=== PATIENT | female | born 1950 | race Caucasian/White ===

== ENCOUNTER 2017-09-30 12:35 | Emergency (ER) | payer MEDICARE ==
[~2017-09-30] VITALS: Ht 170.2 cm; Wt 114.0 kg
[~2017-09-30 12:35] MED LIST: loratadine 10mg tablet PO ONE
[2017-09-30 13:04] LABS: BASOPHILS % (AUTO) 0.4 % (0-1); EOSINOPHILS % (AUTO) 0.3 % (0-6); HEMATOCRIT 45.7 % (35.0-45.0); HEMOGLOBIN 15.4 g/dl (12.0-16.0); LYMPHOCYTES # (AUTO) 1.7 X10'3 (1.1-4.8); LYMPHOCYTES % (AUTO) 14.9 % (21-51); MEAN CORPUSCULAR HEMOGLOBIN 30.7 PG (27.0-31.0); MEAN CORPUSCULAR HGB CONC 33.8 % (33.0-36.5); MEAN CORPUSCULAR VOLUME 91.1 FL (78-98); MEAN PLATELET VOLUME 8.6 FL (7.4-10.4); MONOCYTES # (AUTO) 0.7 X10'3 (0-0.9); MONOCYTES % (AUTO) 5.6 % (2-12); NEUTROPHILS # (AUTO) 9.3 X10'3 (1.8-7.7); NEUTROPHILS % (AUTO) 78.8 % (42-75); PLATELET COUNT 277 X10'3 (140-440); RED BLOOD COUNT 5.02 X10'6 (4.20-5.60); RED CELL DISTRIBUTION WIDTH 14.7 % (11.5-14.5); WHITE BLOOD COUNT 11.7 X10'3 (4.5-11.0)
[2017-09-30] MEDS ORDERED: MULT1TAB74 PO (13:07)
[2017-09-30] MEDS ORDERED: APIX5TAB3 PO (13:07)
[2017-09-30] MEDS ORDERED: FLEC100T2 PO (13:07)
[2017-09-30] MEDS ORDERED: DILT240C96 PO (13:07)
[2017-09-30] MEDS ORDERED: LEVO75TA PO (13:07)
[2017-09-30] MEDS ORDERED: normal saline 1000ml 1,000 ML IV ONE (13:13)
[2017-09-30 13:20] LABS: ALANINE AMINOTRANSFERASE 28 U/L (12-78); ALBUMIN 3.6 G/DL (3.4-5.0); ALKALINE PHOSPHATASE 104 IU/L (46-116); ANION GAP 10 (8-16); ASPARTATE AMINO TRANSFERASE 14 U/L (10-37); BILIRUBIN,TOTAL 0.3 MG/DL (0.1-1.0); BLOOD UREA NITROGEN 25 MG/DL (7-18); BUN/CREATININE RATIO 17.5 (6.6-38.0); CHLORIDE 106 MMOL/L (99-107); CREATININE 1.43 MG/DL (0.40-0.90); GLUCOSE 108 MG/DL (70-104); POTASSIUM 4.1 MMOL/L (3.5-5.1); SODIUM 142 MMOL/L (135-145); TOTAL CARBON DIOXIDE 25.6 MMOL/L (24-32); TOTAL PROTEIN 7.3 G/DL (6.4-8.2); eGFR 37 ML/MIN
[2017-09-30 13:25] LABS: MAGNESIUM 2.1 MG/DL (1.5-2.4)
[2017-09-30] MEDS ORDERED: magnesium oxide 400mg tablet PO ONE (13:40)
[2017-09-30] MEDS ORDERED: amiodarone/D5 360MG/200ML BAG 200 ML IV ONE (13:47)
[2017-09-30] MEDS ORDERED: normal saline 1000ML IV soln IVB ONE (13:50)
[2017-09-30] MEDS ORDERED: AMIODARONE IV ONE (14:00)
[2017-09-30] MEDS ORDERED: DEXTROSE IV ONE (14:00)
[2017-09-30] MEDS ORDERED: loratadine 10mg tablet PO ONE (14:55)
[2017-09-30 17:52] VITALS: BP 132/78
== END 2017-09-30 18:16 | disposition home or self-care (01) ==
LOC: ER 12:36
DX: I48.91 Unspecified atrial fibrillation (principal); I49.9 Cardiac arrhythmia, unspecified; I47.1 Supraventricular tachycardia; Z79.899 Other long term (current) drug therapy
CPT/HCPCS: 36415; 71045; 80053; 83735; 83880; 84484; 85025; 93005; 96365; 96366; 99291; J7030; 96361

== ENCOUNTER 2018-07-24 14:02 | Day surgery (SDC) | payer MEDICARE ==
[2018-07-17 13:35] LABS: ALBUMIN 3.6 G/DL (3.4-5.0); ANION GAP 7 (8-16); BLOOD UREA NITROGEN 22 MG/DL (7-18); CALCIUM 9.3 MG/DL (8.5-10.1); CHLORIDE 105 MMOL/L (99-107); CREATININE 1.16 MG/DL (0.40-0.90); GLUCOSE 96 MG/DL (70-104); POTASSIUM 4.2 MMOL/L (3.5-5.1); SODIUM 142 MMOL/L (135-145); TOTAL CARBON DIOXIDE 29.8 MMOL/L (24-32); eGFR 47 ML/MIN
[2018-07-17 13:40] LABS: BASOPHILS # (AUTO) 0.1 X10'3 (0-0.2); BASOPHILS % (AUTO) 0.8 % (0-1); EOSINOPHILS # (AUTO) 0.1 X10'3 (0-0.9); EOSINOPHILS % (AUTO) 1.8 % (0-6); HEMATOCRIT 45.2 % (35.0-45.0); LYMPHOCYTES # (AUTO) 1.3 X10'3 (1.1-4.8); LYMPHOCYTES % (AUTO) 19.2 % (21-51); MEAN CORPUSCULAR HEMOGLOBIN 31.2 PG (27.0-31.0); MEAN CORPUSCULAR HGB CONC 33.2 g/dL (33.0-36.5); MEAN CORPUSCULAR VOLUME 94.2 FL (78-98); MEAN PLATELET VOLUME 10.2 FL (7.4-10.4); MONOCYTES # (AUTO) 0.6 X10'3 (0-0.9); MONOCYTES % (AUTO) 9.6 % (2-12); NEUTROPHILS # (AUTO) 4.5 X10'3 (1.8-7.7); NEUTROPHILS % (AUTO) 68.6 % (42-75); PLATELET COUNT 199 X10'3 (140-440); RED CELL DISTRIBUTION WIDTH 14.1 % (11.5-14.5); WHITE BLOOD COUNT 6.6 X10'3 (4.5-11.0)
[2018-07-17 13:57] LABS: PARTIAL THROMBOPLASTIN TIME 31 SECONDS (22-32); PROTHROMBIN TIME 10.5 SECONDS (9.0-12.0)
[~2018-07-24] VITALS: Ht 172.7 cm; Wt 111.4 kg
[~2018-07-24 14:02] MED LIST changes: +APIX5TAB3 PO; +DILT240C96 PO; +FLEC100T2 PO; +LEVO75TA PO; +MULT1TAB74 PO; -loratadine 10mg tablet PO ONE
[2018-07-24 14:23] VITALS: BP 140/99
[2018-07-24] MEDS ORDERED: RYT225T PO (14:25)
[2018-07-24] MEDS ORDERED: normal saline 1000ml 1,000 ML IV SCH (14:30)
[2018-07-24] MEDS ORDERED: fentaNYL/PF 50MCG/1 ML 2ML syringe IV ONE (14:30)
[2018-07-24] MEDS ORDERED: MIDAZolam 5mg/ml 2ml vial IV ONE (14:30)
--- NOTE | 2018-07-24 16:45 | NUR ---
pt procedure cancelled by
== END 2018-07-24 14:48 | disposition home or self-care (01) ==
LOC: SSTAY O 14:02
PROVIDERS: ATTEND Internal Medicine Interventional Cardiology
DX: I48.91 Unspecified atrial fibrillation (principal); Z53.8 Procedure and treatment not carried out for other reasons
CPT/HCPCS: 36415; 80048; 85025; 85610; 85730; J7030

== ENCOUNTER 2025-02-21 08:31 | Inpatient (IN) | payer MEDICARE, OTHER ==
[~2025-02-21] VITALS: Ht 170.2 cm; Wt 115.4 kg
[~2025-02-21 08:31] MED LIST changes: -DILT240C96 PO; -FLEC100T2 PO; +MULT-620 PO; -MULT1TAB74 PO; +[UNRECOGNIZED DRUG - CODE] PO
--- NOTE | 2025-02-21 09:08 | ELECTROCARDIOGRAPH REPORT ---
[facility] Test Date: 2025-02-21 Test Time: 09:06:02 Pat Name: THIERNO ARIZMENDI Department: [facility]- Patient ID: [facility]-[id number] Room: Gender: F Dye Range Tender: : 1950 Requested By: CHRISTIANO EDEN Order Number: [id number] Reading MD: Dr. Christiano Eden Measurements Intervals [place] Rate: 119 P: 0 [place]: 0 QRS: 60 QRSD: 88 T: 14 QT: 383 QTc: 539 Interpretive Statements Atrial flutter with 2:1 AV block Borderline T abnormalities, anterior leads Prolonged QT interval Baseline wander in lead(s) I,III,aVL Electronically Signed On 02-21-2025 9:26:[address] Christiano Eden Please click the below link to view image of tracing.
--- NOTE | 2025-02-21 09:46 | RADIOLOGY REPORT ---
CHEST RADIOGRAPH Indication: CP Technique: DI CHEST,SINGLE VIEW Comparison: None FINDINGS: 1 The cardiac silhouette is unremarkable. The lungs demonstrate no pulmonary airspace consolidation. The pulmonary vasculature is unremarkable. There is no pleural effusion. There is no pneumothorax. Aortic atherosclerotic disease. IMPRESSION: No pulmonary airspace consolidation.
[2025-02-21 09:59] LABS: MEAN PLATELET VOLUME 10.3 FL (7.4-10.4); RED CELL DISTRIBUTION WIDTH 14.0 % (11.5-14.5)
[2025-02-21 10:24] LABS: CREATININE 1.04 MG/DL (0.40-0.90); PRO BRAIN NATRIURETIC PEPTIDE 2401 PG/ML (0-125); TOTAL CARBON DIOXIDE 29.6 MMOL/L (24-32); eCRCL 46 ML/MIN; eGFR 52 ML/MIN
--- NOTE | 2025-02-21 11:45 | Physician Documentation ---
History of Present Illness ~ Chief Complaint: Irregular Heartbeat Stated Complaint: FAST HEART RATE Time Seen by MD: 11:42 OK to notify your PCP?: Yes Source: patient, RN/, RN notes reviewed, old records Mode of Arrival: Ambulatory Exam Limitations: no limitations HEART Score: 4 HPI This patient is a 74 y/o female who presents to ED with chief complaint of rapid heart rate. Patient has history of going in and out of atrial fibrillation. She is followed by emergency medical technician, Dr. Sanderson, and is taking Sodalol as well as Eliquis. Patient reports she did have her Sodalol increased from 80mg BID to TID yesterday after seeing her doctor. Patient unsure of when her last stress test was, but states it was "quite a while ago". She denies any history of a cardiac cath. She reports she has had two ablations in the past for her atrial fibrillation. Patient presents today stating that her heart rate jumped from the 60s to 120s. She denies any associated chest pain. She states she has been compliant with all her medications. Patient denies any other associated symptoms at this time. Patient denies any other alleviating or exacerbating factors. Medication Reconciliation Allergies: Coded Allergies: No Known Allergies (Unverified , 02/21/25) Scheduled Apixaban (Eliquis), 1 TAB PO Q12H, (Reported) Atorvastatin Calcium (Atorvastatin Calcium), 1 TAB PO DAILY, (Reported) Levothyroxine Sodium (Levothyroxine), 1 CAP PO DAILY, (Reported) Multivitamins (Multivitamins), 1 TAB PO DAILY, (Reported) Discontinued Medications Levothyroxine Sodium* (Synthroid*), 1 TAB PO DAILY, (Reported) Discontinued Reason: patient no longer taking Propafenone Hcl (RYTHMOL tablet), 225 MG PO BID, (Reported) Discontinued Reason: patient no longer taking Past Medical History Past Medical History: Arrhythmia, Atrial Fibrillation Past Surgical History: other Other Past Surgical History: Cardiac Ablation Smoking Status: Never smoker Alcohol Use: None Drug Use: none Lives with: Spouse Lives In: Home Review of Systems All Other Systems at this time: Reviewed and Negative Physical Exam Vital Signs: RN Vital Signs have been reviewed: Yes, Temperature: 97.3, Source: Temporal, Heart Rate: 105, Respiratory Rate: 21, BP: 132/91, Pulse Oximetry: 96, Weight: 115.000 Oxygen Flow Rate: 0 Physical Exam General: The patient is well developed, well nourished, nontoxic appearing and is in no acute distress. Skin: [place], warm and dry with no rashes. HEENT: Head was normocephalic and atraumatic. Eyes - pupils equal, round, reactive to light and accommodation. Extraocular movements were intact. Conjunctivae were nonicteric. The mouth and oropharynx were clear with moist mucous membranes. There were no pharyngeal exudates or erythema. Neck: Supple and nontender. There was no jugular venous distention, lymphadenopathy, thyromegaly or masses. Chest: Clear to auscultation bilaterally without wheezes, rales or rhonchi. No accessory muscle use. No dullness to percussion. Heart: Rapid rate and irregulary rhtyhm. S1, S2. No murmurs. Palpation of the chest wall was normal. No rubs or thrills. Abdomen: Soft, nontender and nondistended. Positive bowel sounds. No guarding or rebound. No hepatosplenomegaly or palpable masses. Extremities: No cyanosis, clubbing or edema. The patient moves all extremities. Pulses were equal and symmetric. Neurologic: Cranial nerves II-XII were intact. Sensation was intact to light touch throughout. Motor strength was 5/5 in all four extremities. Deep tendon reflexes were intact in both upper and lower extremities. Psychologic: The patient was oriented to person, place and time. The patient demonstrated appropriate judgement and insight. Progress Progress Note 1155: Paged Hospitalist 1212: Case discussed with hospitalist who agrees to evaluate patient for admission. Results/Orders Results/Orders Orders - TARIQ NICHOLS MD Chest,Single View (02/21/25 08:59) Monitor (02/21/25 08:59) Saline Lock (02/21/25 08:59) Oxygen (02/21/25 08:59) Electrocardiogram (02/21/25 08:59) Page Hospitalist (02/21/25 11:55) Fill Out Med Reconciliation (02/21/25 11:55) Diltiazem-Ns 100mg/100ml (Cardizem-Ns 10 (02/21/25 12:02) Completed Orders - TARIQ NICHOLS MD Chest,Single View (02/21/25 08:59) Cbc/Diff (02/21/25 08:59) BMP (02/21/25 08:59) PBNP (02/21/25 08:59) Electrocardiogram (02/21/25 08:59) Hs Troponin I W Calculations (02/21/25 08:59) Hs Troponin I W Calculations (02/21/25 10:59) Hs Troponin I W Calculations (02/21/25 11:59) Diltiazem-D5w 125mg/125ml (Cardizem-D5w (02/21/25 11:55) Medications Received in ER Medications (Trade) Dose Ordered Sig/Tor Route PRN Reason Start Time Stop Time Status Last Admin Dose Admin Diltiazem HCl 100 ml @ 5 mls/hr Q20H ONCE IV 02/21/25 12:02 02/22/25 07:54 02/21/25 12:29 5 MLS/HR Vital Signs 02/21/25 02/21/25 02/21/25 08:51 10:15 11:03 Temp 97.3 Pulse 120 105 Resp 18 16 21 B/P (MAP) 121/70 132/91 (105) Pulse Ox 99 96 O2 Flow Rate 0 0 Laboratory Tests Test 02/21/25 09:21 02/21/25 10:50 02/21/25 12:07 White Blood Count 8.6 Red Blood Count 4.92 Hemoglobin 15.4 Hematocrit 45.5 H Mean Corpuscular Volume 92.4 Mean Corpuscular Hemoglobin 31.3 H Mean Corpuscular Hemoglobin Concent 33.9 Red Cell Distribution Width 14.0 Platelet Count 256 Mean Platelet Volume 10.3 Neutrophils (%) (Auto) 72.4 Lymphocytes (%) (Auto) 17.9 L Monocytes (%) (Auto) 7.6 Eosinophils (%) (Auto) 1.0 Basophils (%) (Auto) 1.1 H Neutrophils # (Auto) 6.3 Lymphocytes # (Auto) 1.5 Monocytes # (Auto) 0.7 Eosinophils # (Auto) 0.1 Basophils # (Auto) 0.1 CBC Comment Sodium Level 140 Potassium Level 4.3 Chloride Level 106 Carbon Dioxide Level 29.6 Anion Gap 4 L Blood Urea Nitrogen 21 H Creatinine 1.04 H Estimated GFR/1.73 m2 52 BUN/Creatinine Ratio 20.2 H Glucose Level 113 H Calcium Level 8.8 Troponin I High Sensitivity 6 4 4 Pro-B-Type Natriuretic Peptide 2401 H Albumin 3.5 Chemistry Comments Troponin I High Sens Percent Delta 33 0 Troponin I Hi Sens Absolute Change -2 0 Re-Evaluation Re-Evaluation : Treatment Given: calcium channel saloni Re-Evaluation: Improved Additional Comment This patient was recently seen by her emergency medical technician has been doing well because of increasing AFib with RVR her sotalol doses were increased and then from b.i.d. dosing to t.i.d. dosing she has a prolonged QTC which is concerning. CBC was obtained also reassuring without anemia or leukocytosis to suggest any infection. Patient's chemistries were within normal limits three troponins are negative patient's proBNP slightly elevated at 2400. The patient was started on a Cardizem drip. I then contacted the hospitalist regarding admission for further workup and care as well as cardiac consultation also possible evaluation to rule out possible ischemic disease. Continuous test carrier interpretation shows rapid AFib with RVR heart rate 120s, abnormal, my interpretation. Pulse oximetry monitor interpretation shows normal oxygenation at 99% room air, normal, my interpretation. EKG/XRAY/CT/US/VASC/MRI EKG : Additional Comment [place] [id number] ELECTROCARDIOGRAM Patient: THIERNO ARIZMENDI Medical Record: [id number] : 1950, Age: 74Sex: F Location: ER Patient Status: REG ER Service Date/Time: 599954 Ordering Physician: TARIQ NICHOLS MD Exam Name: ELECTROCARDIOGRAM Technologist: [facility] Test Date: 2025-02-21 Test Time: 09:06:02 Pat Name: THIERNO ERNSTERY Department: [facility] Patient ID: [facility]-[id number] Room: Gender: F Nutrition Tech: : 1950 Requested By: TARIQ NICHOLS Order Number: [id number] Reading MD: Dr. Tariq Nichols Measurements Intervals [place] Rate: 119 P: 0 [place]: 0 QRS: 60 QRSD: 88 T: 14 QT: 383 QTc: 539 Interpretive Statements Atrial flutter with 2:1 AV block Borderline T abnormalities, anterior leads Prolonged QT interval Baseline wander in lead(s) I,III,aVL Electronically Signed On 02-21-2025 9:26:[address] Tariq Nichols Please click the below link to view image of tracing. EKG Date and Time:02/21/25905 Electronically Signed by: TARIQ NICHOLS MD Date and Time: 02/21/25925 NO PRIMARY CARE PROVIDER~ cc: ~ Chest X-Ray : Additional Comments [address] [address] DIAGNOSTIC RADIOLOGY Patient: THIERNO ARIZMENDI Medical Record: [id number] [facility] : 1950, Age: 74 Sex: Female Location: ER Patient Status: [facility] ER Service Date/Time: 02/21/25858 Ordering Physician: TARIQ NICHOLS MD Exam: CHEST,SINGLE VIEW CHEST RADIOGRAPH Indication: CP Technique: DI CHEST,SINGLE VIEW Comparison: None FINDINGS: 1 The cardiac silhouette is unremarkable. The lungs demonstrate no pulmonary ai rspace consolidation. The pulmonary vasculature is unremarkable. There is no pleural effusion. There is no pneumothorax. Aortic atherosclerotic disease. IMPRESSION: No pulmonary airspace consolidation. Electronically Signed by:CARLOS DIALLO MD Date & Time: 10/25/25 0947 Dictated by: CARLOS DIALLO MD Dictation date and time: 02/21/25 0992 Primary Care Provider: NO PRIMARY CARE PROVIDER cc: TARIQ NICHOLS MD ~ IMAGING REVIEWED BY EDMD DR. NICHOLS WHO AGREES WITH FINDINGS Heart Score: Heart Score Response (Comments) Value History Slightly Suspicious 0 EKG Repolarization Disturb 1 Age >65 2 Risk Factors 1 or 2 risk factors 1 Troponin Normal limit 0 Total 4 Medical Decision Making Additional information obtaine: old records Findings Rapid AFib possible ischemic heart disease versus electrolyte abnormalities ve rsus cardiac arrhythmias. Differential Dx:Considerations: Include: angina / MO, atrial dysrhythmia, atrial fibrillation, atrial flutter, MAT, PACs, PSVT, sinus tachycardia, WPW, 1st degree AV block, 2nd degree AVB-type 1, 2nd degree AVB-type 2, 3rd degree AV block, PVCs, torsades de pointes, ventricular fibrillation, ventricular tachycardia, other Differential Dx:Considerations: Include anxiety/panic attack, Include digoxin toxicity, Include electrolyte disorder, Include heart failure, Include hyperthyroidism, Include hyperventilation, Include hypoxia, Include pacemaker malfunction, Include pulmonary embolus, Include renal failure, Include other Departure Time of Disposition: 11:55 Disposition: ADMITTED INPATIENT Admitted to Inpatient Unit: yes, to hospitalist Admission Level of Care: PCU with Tele Impression: Primary Impression: Atrial fibrillation with RVR Additional Impression: Prolonged QT interval Discharge Instructions: Cardiac Arrhythmia Referrals: NO PRIMARY CARE PROVIDER (PCP) Education Educated: Patient Educated regarding: diagnosis, other Critical Care Note Total Time (mins): 30 Critical Care Note The very real possibility of a deterioration of this patient's condition required the highest level of my preparedness for sudden, emergent intervention. I provided critical care services, which included medication orders, frequent reevaluations of the patient's condition and response to treatment, ordering and reviewing test results, and discussing the case with various consultants. Excludes time spent performing separately billable procedures. The critical care time associated with the care of the patient was 30 minutes. Signature Scribe Signature: Scribed for Tariq Nichols MD by Conchita Bianchi. 02/21/25 11:55 Attestation: The note accurately reflects work and decisions made by me.Tariq Nichols MD 02/21/25 11:44 TARIQ NICHOLS MD Feb 21, 2025 11:44
[2025-02-21] MEDS ORDERED: diltiazem-D5W 125mg/125ml 125 ML IV ONE (11:55)
[2025-02-21] MEDS: diltiazem-NS 100mg/100ml 100 ML IV ONE (12:29)
[2025-02-21] MEDS ORDERED: LEVO88CA5 PO (12:41)
[2025-02-21] MEDS ORDERED: ATOR10TA70 PO (12:41)
[2025-02-21] MEDS ORDERED: mag hydrox/Alum hydrox/simeth 30ml oral suspension PO PRN (14:30)
[2025-02-21] MEDS ORDERED: magnesium sulf-water 2g/50mL 50 ML IV PRN (14:30)
[2025-02-21] MEDS ORDERED: HYDROcodone/acetaminophen 5mg/325mg tablet PO PRN (14:30)
[2025-02-21] MEDS ORDERED: potassium Cl 20 mEq SR tablet PO PRN ×2 (14:30)
[2025-02-21] MEDS ORDERED: potassium Cl 40MEQ/1/2NS 520ml 520 ML IV PRN (14:30)
[2025-02-21] MEDS ORDERED: ondansetron/PF 4mg/2ml inj IV PRN (14:30)
[2025-02-21] MEDS ORDERED: magnesium sulf-water 4G/100mL 100 ML IV PRN (14:30)
[2025-02-21] MEDS ORDERED: magnesium Cl slow-release 64mg tablet PO PRN (14:30)
[2025-02-21] MEDS ORDERED: HYDROmorphone/PF 0.2 MG/ML SYRINGE IV PRN (14:30)
[2025-02-21] MEDS ORDERED: HYDROmorphone inj. 0.5 MG/0.5 ML DISP.SYRIN IV PRN (14:30)
--- NOTE | 2025-02-21 15:24 | HISTORY AND PHYSICAL-Residence ---
History & Physical Providers to CC Resident Creating Document: MARCIO ELIAS RES ~ History of Present Illness Reason for Admit\Complaint: Rapid Heart Beat History of Present Illness This is a 74-year-old female with a history of AFib s/p with stimulation presented to the ER with complain of rapid heartbeat. She reports that on Sunday night she felt her heart is beating fast and on morning her Apple watch showed AFib with heart rates ranging from 120-136. She then contacted car career and transition teacher's office and was advised to increase her sotalol dose however despite the dose adjustment her heart rate was spiking between 70-130. She also mentions tingling sensation starting in her fingers radiating to arm and chest, she also feel sweaty,lightheadness, fatigue and generalized weakness for the past 5 days.She also reports sometimes when her heartbeat goes fast she used to take extra tablet of sotalol. She denies nausea, vomiting, chest pain or shortness of breath. Previously she was taking sotalol 80 mg BID for the past 3 years, Since she takes 80 mg 1.5 tablet BID recommended by career and transition teacher office. Dobby Loom Chain Pegger is Dr. 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 Primary care is Dr. Benjamin Levine Dobby Loom Chain Pegger is Dr. Kin HURD ROS All reviewed and negative except pertinent positive findings mentioned in HPI Exam Vitals: Vital Signs Date Time Temp Pulse Resp B/P (MAP) Pulse Ox O2 Delivery O2 Flow Rate FiO2 02/21/25 15:10 78 02/21/25 14:01 95 Room Air* 0 21 02/21/25 13:58 131/90 02/21/25 13:57 16 02/21/25 08:51 97.3 General: General: awake, alert oriented to place, time, and person HEENT: No pallor present, no icterus, moist mucous membranes Neck: No masses and tenderness Resp: Unlabored. Lungs clear to auscultation bilaterally. Chest: Normal expansion. Cardiovascular: Irregular Irregularly rhythm, HR citlali,normal S1 and S2 without murmur, rub or gallop Abdomen: Soft and non tender in epigastrium, no organomegaly, no guarding and rigidity, bowel sounds present Neuro: No focal weakness in the upper and lower limb muscles, power of the muscles 5/5 bilateral upper and lower extremities, normal reflexes bilaterally. Cranial nerves intact Extremities: No cyanosis,clubbing or edema Skin: Warm and Dry. Psych: Normal affect Diagnostic Data Last Recorded Lab Results: 02/21/2592002/21/25920 Advance Care Planning Advanced Care plannin - 30 Minutes (I spent 17 minutes in discussing various resuscitative measures with the patient and she chose to be full code) Additional Plan This is a 74-year-old female with past medical history of AFib s/p ablation presented in ER with complain of rapid heartbeat. Atrial Fibrillation/Flutter S/P Ablation [id number] score: 3 EKG: Afib with Aflutter, Qtc 539 Prolonged QT interval, patient was previously taking sotalol Eliquis 5 mg b.i.d On diltiazem 5 mg/hr, heart rate is improving. On telemetry Hypothyroidism Continue levothyroxine 88 mcg TSH awaiting Chronic Kidney Disease Stage 3a Creatinine 1.04 eGFR: 52 Code status: Full code DVT prophylaxis: Eliquis 5 mg BID GI prophylaxis: Pantoprazole 40 mg IV Marcio Elias PGY 1 IM Date of Service: Feb 21, 2025 Billing Provider: NAIN CAIN MD Common Visit Codes: [id number] INP/OBS CARE (HIGH) Secondary Visit Codes: [id number] CARE PLAN 30 MINUTES MARCIO ELIAS, MEÑO Feb 21, 2025 15:24 NAIN CAIN MD Feb 23, 2025 06:58
[2025-02-21 16:04] LABS: CHOL/HDL RATIO 3.1 (0.00-4.99); LDL CHOLESTEROL 69 MG/DL (50-100)
[2025-02-21] MEDS: PERFLUTREN PROTEIN-A MICROSPHR (Optison) 0.22 MG/ML 3ML VIAL IV ONE (16:15)
[2025-02-21 18:00] VITALS: BP 108/86; PULSE 61; RESP 12; TEMP 97.6; O2SAT 96
[2025-02-21 19:00] VITALS: BP 111/60; PULSE 63; RESP 18
[2025-02-21] MEDS: docusate sod 100mg capsule PO SCH (19:25)
[2025-02-21] MEDS: K and/or MAG REPLACEMENT MC SCH (19:26)
[2025-02-21] MEDS: diltiazem CD 180mg cap (once-daily) PO SCH (19:46)
[2025-02-21 20:00] VITALS: BP 101/72; PULSE 61; RESP 12; RESP 25; O2SAT 96
[2025-02-21 21:00] VITALS: BP 119/86; PULSE 94; RESP 22
[2025-02-21] MEDS ORDERED: SOTA80TA46 PO (21:48)
[2025-02-21 22:00] VITALS: BP 96/63; PULSE 103; RESP 17; TEMP 97.5; O2SAT 96
[2025-02-22] VITALS (10 sets, daily range): BP systolic 98–152; BP diastolic 56–103; PULSE 55–96; RESP 16–25; TEMP 96.9–98.1; O2SAT 96–98
[2025-02-22 06:16] LABS: MEAN PLATELET VOLUME 10.1 FL (7.4-10.4); RED CELL DISTRIBUTION WIDTH 13.7 % (11.5-14.5)
[2025-02-22 06:31] LABS: APTT 29 SECONDS (22-32); INR 1.1 INR
[2025-02-22 07:10] LABS: CREATININE 0.88 MG/DL (0.40-0.90); PHOSPHORUS 3.6 MG/DL (2.3-4.5); TOTAL CARBON DIOXIDE 25.5 MMOL/L (24-32); eCRCL 55 ML/MIN; eGFR 63 ML/MIN
--- NOTE | 2025-02-22 10:20 | ELECTROCARDIOGRAPH REPORT ---
[facility] Test Date: 2025-02-22 Test Time: 10:17:57 Pat Name: THIERNO ARIZMENDI Department: [facility] 3S Room: [place] [address] [address] Gender: F Email Marketing Intern: : 1950 Requested By: ANNE SHER Order Number: [id number] Reading MD: Dr. GOSIA Denise Measurements Intervals [place] Rate: 93 P: 0 [place]: 0 QRS: 63 QRSD: 93 T: 16 QT: 373 QTc: 464 Interpretive Statements Atrial flutter with predominant 3:1 AV block Ventricular premature complex Electronically Signed On 02-24-2025 18:48:[address] GOSIA Denise Please click the below link to view image of tracing.
[2025-02-22] MEDS: digoxin 250mcg/ml 2ml ampule ONE (12:50)
[2025-02-22] MEDS: digoxin 250mcg/ml 2ml ampule IV ONE ×3 (12:54→21:37)
--- NOTE | 2025-02-22 15:58 | PROGRESS NOTE- Residence ---
Progress Note - Resident Providers to CC Resident Creating Document: SYED ELIAS RES ~ Antibiotic Timeout Antibiotic Ordered?: No Subjective Patient was seen and examined on bedside, she reports that she is not feeling better and was having chest discomfort, she was also feeling lightheaded, denies nausea, vomiting Objective Vital Signs Date Time Temp Pulse Resp B/P (MAP) Pulse Ox O2 Delivery O2 Flow Rate FiO2 02/22/25 12:54 96 02/22/25 08:00 16 96 Room Air 02/22/25 02:00 97.9 106/64 (78) 02/21/25 14:01 0 21 Result Diagram: 02/22/25 0545 02/22/25 0545 General: awake, alert oriented to place, time, and person HEENT: No pallor present, no icterus, moist mucous membranes Neck: No masses and tenderness Resp: Unlabored. Lungs clear to auscultation bilaterally. Chest: Normal expansion. Cardiovascular:Regular rhythm, HR elevated,normal S1 and S2 without murmur, rub or gallop Abdomen: Soft and non tender in epigastrium, no organomegaly, no guarding and rigidity, bowel sounds present Neuro: No focal weakness in the upper and lower limb muscles, power of the muscles 5/5 bilateral upper and lower extremities, normal reflexes bilaterally. Cranial nerves intact Extremities: No cyanosis,clubbing or edema Skin: Warm and Dry. Psych: Normal affect Coagulation Studies Laboratory Tests Test 02/22/25 05:45 Prothrombin Time 10.9 SECONDS (9.0-12.0) INR International Normalized Ratio 1.1 INR Activated Partial Thromboplast Time 29 SECONDS (22-32) Coagulation Comments Advance Care Planning Advanced Care plannin - 30 Minutes Plan Plan This is a 74-year-old female with past medical history of AFib s/p ablation presented in ER with complain of rapid heartbeat. Atrial Fibrillation/Flutter S/P Ablation [id number] score: 3 EKG: Afib with Aflutter, Qtc 539 Prolonged QT interval, patient was previously taking sotalol Eliquis 5 mg b.i.d On diltiazem 5 mg/hr, heart rate is improving. On telemetry 02/22/25 Patient developed hypotension in view of this DCed Cardizem tablet. In view of chest pain ordered trop which is negative and EKG whiched showed atrial flutter. Patient started on digoxin 0.5 mg IV once, followed 0.25 mg q4hx 2 doses then switch to digoxin to PO 250 mcg Telemetry shows atrial flutter and HR in 100z Qtc 464 improving, yesteraday it was 539 Previously she was taking sotalol 80 mg BID for the past 3 years, Since she takes 80 mg 1.5 tablet BID recommended by tack picker office, sotalol has beed dced for now. Hypothyroidism Continue levothyroxine 88 mcg TSH awaiting 02/22/25 Continue levothyroxine 88 mcg TSH normal Chronic Kidney Disease Stage 3a Creatinine 1.04 eGFR: 52 02/22/25 Creatinine 0.88 eGFR 63 Kidney function is improving Code status: Full code DVT prophylaxis: Eliquis 5 mg BID GI prophylaxis: Pantoprazole 40 mg IV Syed Elias PGY 1 IM Date of Service: Feb 22, 2025 Billing Provider: NAIN CAIN MD Common Visit Codes: [id number] INP/OBS CARE(HIGH) SYED ELIAS, RES Feb 22, 2025 15:58 NAIN CAIN MD Feb 23, 2025 06:58
--- NOTE | 2025-02-22 17:47 | CARDIOLOGY REPORT ---
APPROVED REPORT EXAM: Comprehensive 2D, Doppler, and color-flow Echocardiogram. Patient Location: [facility]7 B Heart Rate: 93-134 bpm Rhythm: ATRIAL FIBRILLATION Indications ARRHYTHMIA ATRIAL FIBRILLATION ABLATION x2 2018 - 2019 [address] Glassware Replacer: rIene Sanderson MD Previous echo: NONE AVAILABLE (AFTER HOURS) 2D Dimensions RVDd 2.6 cm IVSd 1.1 (0.7-1.1cm) LVDd 3.3 cm PWd 1.1 (0.7-1.1cm) IVSs 1.4 (0.8-1.2cm) LVDs 2.2 (2.5-4.0cm) PWs 1.4 (0.8-1.2cm) LVOT Diameter 1.93 (1.8-2.4cm) LVEF(%) 61.4 (>50%) IVC 17.27 mm FS (%) 32.0 % SV 28.2 ml CO 3.9 L/min M-Mode Dimensions Left Atrium(MM) 4.78 (2.5-4.0cm) Aortic Root 2.84 (2.2-3.7cm) Aortic Cusp Exc 1.98 (1.5-2.0cm) Aortic Valve AoV Peak Fran. 109.5 cm/s AoV VTI 18.4 cm AO Peak GR. 4.8 mmHg AO Mean GR. 3 mmHg LVOT VTI 12.60 cm LVOT Peak Fran. 94.6 cm/s ELIZABETH(VTI)/BSA 2.01 cm2/m2 ELIZABETH (VTI) 2.01 cm2 AV DI 0.68 % Mitral Valve MV Peak Gr. 4 mmHg MV PHT 56 ms MVA (PHT) 3.93 cm2 MV VMax 105.0 cm/s Tricuspid Valve TR P. Velocity 263 cm/s RAP ESTIMATE 10 mmHg TR Peak Gr. 28 mmHg RVSP 38 mmHg LEFT VENTRICLE Normal LV size and wall thickness. Overall systolic function is normal. LVEF is 65-70%. RIGHT VENTRICLE RV is normal size and function. Elevated right heart pressures with an RVSP of 38 mmHg. ATRIA Left atrium is mildly dilated. AORTIC VALVE Trileaflet AV appears mildly sclerotic without stenosis. No insufficiency. MITRAL VALVE Mild MV annular calcification without stenosis. Trace regurgitation. TRICUSPID VALVE Normal TV without stenosis. Mild regurgitation. PULMONIC VALVE Normal PV without stenosis, physiologic insufficiency. GREAT VESSELS The aortic root is normal in size. PERICARDIUM Normal pericardium. No effusion. Other Information Study Quality: Adequate Conclusion Normal LV size and wall thickness. Overall systolic function is normal. LVEF is 65-70%. RV is normal size and function. Elevated right heart pressures with an RVSP of 38 mmHg. Left atrium is mildly dilated. Trileaflet AV appears mildly sclerotic without stenosis. No insufficiency. Mild MV annular calcification without stenosis. Trace regurgitation. Normal TV without stenosis. Mild regurgitation. Normal PV without stenosis, physiologic insufficiency. Normal pericardium. No effusion.
[2025-02-22] MEDS: magnesium hydroxide 30ml (MOM) UD suspension PO PRN (21:44)
[2025-02-23] VITALS (7 sets, daily range): BP systolic 117–143; BP diastolic 68–81; PULSE 70–89; RESP 16–28; TEMP 97.5–98.4; O2SAT 95–99
[2025-02-23 06:10] LABS: MEAN PLATELET VOLUME 9.6 FL (7.4-10.4); RED CELL DISTRIBUTION WIDTH 13.9 % (11.5-14.5)
[2025-02-23 06:26] LABS: APTT 30 SECONDS (22-32); INR 1.0 INR
[2025-02-23 06:53] LABS: CREATININE 0.93 MG/DL (0.40-0.90); PHOSPHORUS 3.3 MG/DL (2.3-4.5); TOTAL CARBON DIOXIDE 27.1 MMOL/L (24-32); eCRCL 52 ML/MIN; eGFR 59 ML/MIN
[2025-02-23] MEDS: digoxin 250mcg (0.25mg) tablet PO SCH (08:55)
[2025-02-23] MEDS: pantoprazole 40mg Tablet.DR PO SCH (08:55)
[2025-02-23] MEDS ORDERED: levoTHYROXINE 88mcg tablet PO SCH (16:05)
--- NOTE | 2025-02-23 16:08 | PROGRESS NOTE- Residence ---
Progress Note - Resident Providers to CC Resident Creating Document: NATALEENATALEE RAMIREZMATEO Wing, RES ~ Antibiotic Timeout Antibiotic Ordered?: No Subjective The patient has been at the bedside. The patient denies any chest pain, shortness of breath or palpitations. Morning events: The patient's heart rate currently going up to 130s with ambulation. Objective Vital Signs Date Time Temp Pulse Resp B/P (MAP) Pulse Ox O2 Delivery O2 Flow Rate FiO2 02/23/25 11:08 98.4 87 19 126/68 (87) 96 Room Air 02/21/25 14:01 0 21 Physical exam: General: Awake, alert, oriented. No acute distress. Well-developed, hydrated and well-built nourished. No anemia, Jaundice or clubbing. HEENT: Conjunctive are pink, sclerae clear, no icterus, pupil is equal in both sides, reactive to light, no ear discharge, no pharyngeal erythema or an edema. Neck: Supple, no adenopathy, thyromegaly. Trachea is midline. No JVD. Chest: Respiratory: Vesicular breath sounds. No ronchi, crepitus or wheezing. Resonance is normal upon percussion of all lung byrd. Cardiovascular: S1-S2 regular sinus rhythm and, regular rate, no gallops, no rubs, no murmurs Abdomen: No visible distention, Bowel sounds present on auscultation, on palpation: soft, nontender, no guarding, no rigidity. Extremities: No obvious deformities, no pitting edema bilaterally, capillary refill intact, peripheral pulsations are intact on both sides Neurologic: Mental status: alert and conscious, oriented to place, person and time, preserved memory, normal speech. Cranial nerves I-XII: Normal. Motor system: Preserved power, coordination, no evidenced involuntary movements, strength 5/5 in four extremities. Sensory system: Preserved temperature, pain and vibration sensation. 2+ deep tendon reflexes in biceps, triceps, quadriceps. Negative Babinski. Cerebellar: No nystagmus, dysdiadochokinesia, normal [id number] testing. Skin: Warm and dry. Result Diagram: 02/23/2544 02/23/2544 Coagulation Studies Laboratory Tests Test 02/23/25 05:44 Prothrombin Time 10.6 SECONDS (9.0-12.0) INR International Normalized Ratio 1.0 INR Activated Partial Thromboplast Time 30 SECONDS (22-32) Coagulation Comments Assessment Assessment 74-year-old female patient with past medical history of AFib s/p ablation admitted with a flutter with RVR. Plan Plan Atrial flutter with RVR [id number] score: 3 EKG: Afib with Aflutter, Qtc 539 Prolonged QT interval, patient was previously taking sotalol Eliquis 5 mg b.i.d On diltiazem 5 mg/hr, heart rate is improving. On telemetry 02/22/25 Patient developed hypotension in view of this DCed Cardizem tablet. In view of chest pain ordered trop which is negative and EKG whiched showed atrial flutter. Patient started on digoxin 0.5 mg IV once, followed 0.25 mg q4hx 2 doses then switch to digoxin to PO 250 mcg Telemetry shows atrial flutter and HR in 100z Qtc 464 improving, yesteraday it was 539 Previously she was taking sotalol 80 mg BID for the past 3 years, Since she takes 80 mg 1.5 tablet BID recommended by [employer] pattern[employer] office, sotalol has beed dced for now. 02/23/2025: Current heart rate going up to 130s with the ambulation, still atrial flutter in telemetry. Plan: Continue digoxin 250 mcg daily. Diltiazem 180 mg daily. Continue Eliquis 5 mg b.i.d. Hypothyroidism Continue levothyroxine 88 mcg TSH awaiting 02/23/25: TSH 1.25. On levothyroxine 88 mcg daily. Chronic Kidney Disease Stage 3a Creatinine 1.04 eGFR: 52 02/22/25 Creatinine 0.88 eGFR 63 Kidney function is improving 02/23/2025 creatinine at baseline. Continue to monitor CMP. Code status: Full code DVT prophylaxis: Eliquis Analgesia/sedation: [place] Line/tube: PIV GI prophylaxis: Protonix Nutrition: Heart healthy diet PT: Yes Prognosis: Guarded Disposition: Continue medical management. Cardiology consulted, awaiting recommendations. Mateo Sharpe Internal Medicine Resident [facility] Date of Service: Feb 23, 2025 Billing Provider: NAIN CAIN MD Common Visit Codes: [id number] INP/OBS CARE(HIGH) MATEO SCHAEFER, RES Feb 23, 2025 16:08 NAIN CAIN MD Feb 25, 2025 06:41
--- NOTE | 2025-02-23 16:45 | CONSULTATION REPORT ---
History of Present Illness Providers to CC CC: KENNETH SANDERSON MD ~ Reason for Admit\Admit Dx: Cardiology consultation History of Present Illness Patient with past medical history of atrial fibrillation status post ablation x2 in the past, obstructive sleep apnea on CPAP, hyperlipidemia and hypothyroidism presents secondary to elevated heart rate. She has noted her heart rate has been intermittently elevated for the past couple of months. Has been taking extra sotalol as needed. States her atrial fibrillation is paroxysmal in nature. Intermittently she has noted her fast heart rate with intermittent dizziness, weakness and some slight shortness for breath. No chest pain or pressure. Found to have atrial fibrillation with rapid ventricular response. Resting heart rate was initially in the 120s. There was question of QTC prolongation and her sotalol was stopped. She was treated with diltiazem drip and developed hypotension. She then was treated with digoxin. Continues to have tachycardia with heart rate up to the 170s when she gets up to walk. Allergies: Coded Allergies: No Known Allergies (Unverified , 02/21/25) Home Medications Home Medications Active Reported Sotalol (Sotalol HCl) 80 Mg Tablet 1.5 Tab PO Q12H 30 Days 120mg BID Levothyroxine (Levothyroxine Sodium) 88 Mcg Capsule 1 Cap PO DAILY 30 Days Atorvastatin Calcium 10 Mg Tablet 1 Tab PO DAILY 30 Days Multivitamins 1 Each Tablet 1 Tab PO DAILY 30 Days Eliquis (Apixaban) 5 Mg Tablet 1 Tab PO Q12H 30 Days Past Medical History Medical History Comment Atrial fibrillation Hypothyroidism Hyperlipidemia Sleep apnea on CPAP Past Surgical History Surgical History Comment Sinus surgery Squamous cell carcinoma removal Partial thyroidectomy Ablation for atrial fibrillation x2 Past Family History Family History: FH: breast cancer (sister) FH: colon cancer (father) Past Social History Social History Comment Patient does not smoke. Does not drink alcohol. Does not use recreational drugs. Physical Exam Last Vital Signs Recorded: RN Vital Signs have been reviewed: Yes, Temperature: 98.4, Source: Oral, Heart Rate: 87, Respiratory Rate: 19, BP: 126/68, Pulse Oximetry: 96, Weight: 115.000 Physical Exam General: Awake, alert, oriented. No apparent distress Neck: Supple. Normal range of motion. No JVD Respiratory: Lungs are clear to auscultation bilaterally. No respiratory distress. Chest: Normal shape and size. No accessory muscle use. Cardiovascular: Irregularly irregular. S1-S2. No murmur, gallop, rub. Gastrointestinal: Abdomen is soft. Nontender to palpation. Bowel sounds present. Extremities: No lower extremity edema, cyanosis or clubbing. Neurologic: Alert and oriented x4. Nonfocal Psychiatric: Normal mood and affect. Skin: Normal color. Warm and dry. Review of Systems ROS Review of systems negative except documented in HPI. Results EKG EKG Atrial fibrillation with rapid ventricular response Echocardiogram Echocardiogram Conclusion Normal LV size and wall thickness. Overall systolic function is normal. LVEF is 65-70%. RV is normal size and function. Elevated right heart pressures with an RVSP of 38 mmHg. Left atrium is mildly dilated. Trileaflet AV appears mildly sclerotic without stenosis. No insufficiency. Mild MV annular calcification without stenosis. Trace regurgitation. Normal TV without stenosis. Mild regurgitation. Normal PV without stenosis, physiologic insufficiency. Normal pericardium. No effusion. Dictated by:SHAWN GR MD Dictation date and time:02/22/251745 Diagram Lab Result Diagram: 02/23/25 0544 02/23/25 0544 Assessment/Plan Additional Plan Patient presented secondary to racing heart. The following is her problem list: Atrial fibrillation with rapid ventricular response Rate is now controlled with elevated heart rate when she ambulates up to the 170s TSH was checked and was within normal range. Stop digoxin Stop diltiazem --start antiarrhythmic therapy with flecainide 50 mg b.i.d.. Follow up in one week for a EKG --start metoprolol tartrate 100 mg b.i.d. up titrate as needed for heart rate control Case discussed with Dr. Evan Sanderson in agreement with the above plan. Supervising MD Supervising Physician: NIKITA Pitts NP Feb 23, 2025 16:45
[2025-02-24 02:00] VITALS: BP 113/59; PULSE 75; RESP 19; TEMP 97; O2SAT 96
[2025-02-24 06:18] LABS: MEAN PLATELET VOLUME 9.8 FL (7.4-10.4); RED CELL DISTRIBUTION WIDTH 13.9 % (11.5-14.5)
[2025-02-24 06:38] LABS: CREATININE 0.97 MG/DL (0.40-0.90); PHOSPHORUS 4.0 MG/DL (2.3-4.5); TOTAL CARBON DIOXIDE 29.0 MMOL/L (24-32); eCRCL 49 ML/MIN; eGFR 56 ML/MIN
[2025-02-24 07:00] VITALS: BP 97/61; PULSE 71; RESP 21; TEMP 97; O2SAT 96
[2025-02-24 07:02] LABS: APTT 30 SECONDS (22-32); INR 1.0 INR
[2025-02-24] MEDS: levoTHYROXINE 88mcg tablet PO SCH (08:24)
[2025-02-24 08:27] VITALS: BP 107/64; PULSE 68
--- NOTE | 2025-02-24 09:47 | PROGRESS NOTE ---
Progress Note Cardiology Providers to CC CC: KENNETH SANDERSON MD ~ Subjective Subjective Patient now bradycardic. Remains in atrial flutter. Complains of associated dizziness. Objective Result Diagram: 02/24/2553 02/24/25552 Objective General: Awake, alert, oriented. No apparent distress Neck: Supple. Normal range of motion. No JVD Respiratory: Lungs are clear to auscultation bilaterally. No respiratory distress. Chest: Normal shape and size. No accessory muscle use. Cardiovascular: Irregularly irregular. S1-S2. No murmur, gallop, rub. Gastrointestinal: Abdomen is soft. Nontender to palpation. Bowel sounds present. Extremities: No lower extremity edema, cyanosis or clubbing. Neurologic: Alert and oriented x4. Nonfocal Psychiatric: Normal mood and affect. Skin: Normal color. Warm and dry. Coagulation Studies Laboratory Tests Test 02/24/25 05:58 Prothrombin Time 10.5 SECONDS (9.0-12.0) INR International Normalized Ratio 1.0 INR Activated Partial Thromboplast Time 30 SECONDS (22-32) Coagulation Comments Problem\Assessment\Plan Additional Plan Patient presented secondary to racing heart. The following is her problem list: Atrial fibrillation/flutter with rapid ventricular response Now with slow ventricular response. TSH was checked and was within normal range. --cont flecainide 50 mg b.i.d.. Follow up in one week for a EKG --decrease metoprolol tartrate 50 mg b.i.d. Case discussed with Dr. Evan Sanderson in agreement with the above plan. Supervising Physician: NIKITA Pitts NP Feb 24, 2025 09:47
[2025-02-24 10:39] VITALS: BP 108/78; PULSE 64; RESP 21; TEMP 97.8; O2SAT 98
[2025-02-24] MEDS ORDERED: FLEC50TA PO (12:17)
[2025-02-24] MEDS ORDERED: METO50TA7 PO (12:17)
[2025-02-24] MEDS ORDERED: PANT-47 PO (12:18)
--- NOTE | 2025-02-24 19:49 | DISCHARGE SUMMARY-Residence ---
Discharge Summary Providers to CC Resident Creating Document: ELIASPEDROSYED, MEÑO ~ Discharge Summary Admission Diagnosis: Afib Hospital Course DATE OF ADMISSION: 02/21/25 DATE OF DISCHARGE: 02/24/25 Discharge Diagnosis\Comment: Atrial flutter with RVR Atrial fibrillation Hypothyroidism Chronic Kidney Disease Operations\Procedures: none Consultants: [employer] Complications: NONE Condition on DC: Stable New Medications: Flecainide Acetate (Flecainide Acetate) 50 Mg Tablet 1 TAB PO Q12H for 30 Days, #60 TAB 0 Refills Metoprolol Succinate* (Toprol Xl*) 50 Mg Tab.sr.24h 1 TAB PO DAILY for 30 Days, #30 TAB Pantoprazole Sodium (PROTONIX tablet) 40 Mg Tablet.dr 40 MG PO DAILY for 30 Days, #30 TAB.SR Continued Medications: Apixaban (Eliquis) 5 Mg Tablet 1 TAB PO Q12H for 30 Days, #60 TAB Atorvastatin Calcium (Atorvastatin Calcium) 10 Mg Tablet 1 TAB PO DAILY for 30 Days, #30 TAB 0 Refills Levothyroxine Sodium (Levothyroxine) 88 Mcg Capsule 1 CAP PO DAILY for 30 Days, #30 CAP 0 Refills Multivitamins (Multivitamins) 1 Each Tablet 1 TAB PO DAILY for 30 Days, #30 TAB Discontinued Medications: Sotalol HCl (Sotalol) 80 Mg Tablet 1.5 TAB PO Q12H for 30 Days, #60 TAB 0 Refills 120mg BID Discharge Summary: Hospital Course This 74-year-old female with a known history of atrial fibrillation, status post ablation, presented to the Emergency Department with complaints of a rapid heartbeat, which was noticed by her Apple Watch. EKG demonstrated atrial flutter vs afib with a rapid ventricular rate. The patient was started on an intravenous Cardizem drip and metoprolol, which resulted in gradual improvement in heart rate control. She was later transitioned to oral Cardizem 180 mg daily. Subsequently, the patient developed hypotension and recurrence of tachycardia. Cardizem tablet was discontinued, and she was started on digoxin loading dose followed by 250 mcg po daily ,Her heart rate improved with digoxin. Cardiology was consulted, and they recommended initiation of flecainide 50 mg twice daily,, with a plan to repeat an EKG in one week. During hospitalization, the patient experienced intermittent fluctuations in heart rate. She also received metoprolol 50 mg twice daily, Prior to discharge, the metoprolol dose was reduced to 50 mg once daily. Elliquis 5 mg BID was continued in view of her Afib history. At the time of discharge,she was stable and she was clinically improved. She was counselled about medications and to monitor Heart Rate Discharge Instructions Follow up with PCP within 1 week Follow with [employer] within 1 week. Repeat EKG in 1 week Dont take metoprolol if heart rate goes below 60. Call 911 if you experience chest pain, shortness of breath or if your heart rate is low, elevated or you experience palpitations,dizzy or lightheaded. Physical Examination General: awake, alert oriented to place, time, and person HEENT: No pallor present, no icterus, moist mucous membranes Neck: No masses and tenderness Resp: Unlabored. Lungs clear to auscultation bilaterally. Chest: Normal expansion. Cardiovascular: Irregularly Irregular rhythm,, normal S1 and S2 without murmur, rub or gallop Abdomen: Soft and mildly tender in epigastrium, no organomegaly, no guarding and rigidity, bowel sounds present Neuro: No focal weakness in the upper and lower limb muscles, power of the muscles 5/5 bilateral upper and lower extremities, normal reflexes bilaterally. Cranial nerves intact Extremities: No cyanosis,clubbing or edema Skin: Warm and Dry. No lesions Psych: Normal affect Labs Laboratory Tests Test 02/24/25 05:53 02/24/25 05:58 White Blood Count 8.3 X10'3 Red Blood Count 4.58 X10'6 Hemoglobin 14.3 g/dl Hematocrit 42.2 % Mean Corpuscular Volume 92.2 FL Mean Corpuscular Hemoglobin 31.2 PG Mean Corpuscular Hemoglobin Concent 33.9 g/dL Red Cell Distribution Width 13.9 % Platelet Count 204 X10'3 Mean Platelet Volume 9.8 FL Neutrophils (%) (Auto) 64.4 % Lymphocytes (%) (Auto) 23.4 % Monocytes (%) (Auto) 9.2 % Eosinophils (%) (Auto) 2.2 % Basophils (%) (Auto) 0.8 % Neutrophils # (Auto) 5.3 X10'3 Lymphocytes # (Auto) 1.9 X10'3 Monocytes # (Auto) 0.8 X10'3 Eosinophils # (Auto) 0.2 X10'3 Basophils # (Auto) 0.1 X10'3 CBC Comment Sodium Level 138 MMOL/L Potassium Level 4.2 MMOL/L Chloride Level 105 MMOL/L Carbon Dioxide Level 29.0 MMOL/L Anion Gap 4 Blood Urea Nitrogen 22 MG/DL Creatinine 0.97 MG/DL Estimated GFR/1.73 m2 56 ML/MIN BUN/Creatinine Ratio 22.7 Glucose Level 100 MG/DL Calcium Level 8.5 MG/DL Phosphorus Level 4.0 MG/DL Magnesium Level 2.2 MG/DL Total Bilirubin 0.6 MG/DL Aspartate Amino Transf (AST/SGOT) 19 U/L Alanine Aminotransferase (ALT/SGPT) 29 U/L Alkaline Phosphatase 87 IU/L Total Protein 6.3 G/DL Albumin 3.0 G/DL Globulin 3.3 G/DL Albumin/Globulin Ratio 0.9 Chemistry Comments Prothrombin Time 10.5 SECONDS INR International Normalized Ratio 1.0 INR Activated Partial Thromboplast Time 30 SECONDS Coagulation Comments Imaging Echo Conclusion Normal LV size and wall thickness. Overall systolic function is normal. LVEF is 65-70%. RV is normal size and function. Elevated right heart pressures with an RVSP of 38 mmHg. Left atrium is mildly dilated. Trileaflet AV appears mildly sclerotic without stenosis. No insufficiency. Mild MV annular calcification without stenosis. Trace regurgitation. Normal TV without stenosis. Mild regurgitation. Normal PV without stenosis, physiologic insufficiency. Normal pericardium. No effusion. Chest X-Ray FINDINGS: The cardiac silhouette is unremarkable. The lungs demonstrate no pulmonary airspace consolidation. The pulmonary vasculature is unremarkable. There is no pleural effusion. There is no pneumothorax. Aortic atherosclerotic disease. IMPRESSION: No pulmonary airspace consolidation. *Problems/Diagnosis: (1) Atrial fibrillation with RVR Status: Resolved Total Time Spent on D/C: > 30 Minutes Date of Service: Feb 24, 2025 Billing Provider: NAIN CAIN MD Common Visit Codes: 80390-EIC/OBS DISCH DAY >30min SYED ELIAS, RES Feb 24, 2025 19:49 NAIN CAIN MD Feb 25, 2025 06:41
== END 2025-02-24 15:35 | disposition home health service (06) | DRG 310 ==
LOC: ER 08:31 → ED HOLD 12:13 → PCU 3S 14:29
PROVIDERS: ADMIT Internal Medicine; ATTEND Internal Medicine
DX: I48.91 Unspecified atrial fibrillation (principal); E03.9 Hypothyroidism, unspecified; N18.31 Chronic kidney disease, stage 3a; I48.92 Unspecified atrial flutter; E78.5 Hyperlipidemia, unspecified; G47.33 Obstructive sleep apnea (adult) (pediatric); I95.9 Hypotension, unspecified; Z79.01 Long term (current) use of anticoagulants; Z79.899 Other long term (current) drug therapy; Z80.3 Family history of malignant neoplasm of breast
CPT/HCPCS: 36415; 71045; 80048; 80053; 80061; 80162; 83735; 83880; 84100; 84443; 84484; 85025; 85610; 85730; 87081; 93005; 93306; 96365; 99291; G0378; J1160; J2470; J3490